=== PATIENT | female | born 1975 | race Caucasian/White ===

== ENCOUNTER 2019-02-20 16:28 | Inpatient (IN) | payer SELFPAY ==
[~2019-02-20] VITALS: Ht 157.5 cm; Wt 65.3 kg
[2019-02-20] VITALS (10 sets, daily range): BP systolic 123–155; BP diastolic 62–99
[2019-02-20] MEDS ORDERED: IV NORMAL SALINE 1000 ML BAG IV ONE (16:30)
[2019-02-20] MEDS ORDERED: LEVETIRACETAM IV 500 MG in IV DEXTROSE 5% 100 ML IV ONE (16:30)
[2019-02-20] MEDS ORDERED: LEVE500T9 PO (16:39)
--- NOTE | 2019-02-20 16:51 | NUR ---
PT IS IN ROOM #1A. DR LINDSEY EVALUATED THE PT.
[2019-02-20 17:00] LABS: BASOPHILS # (AUTO) 0.2 K/uL (0.0-8.0); BASOPHILS % (AUTO) 2.6 % (0.0-2.0); EOSINOPHILS # (AUTO) 0.1 K/uL (0.0-0.7); EOSINOPHILS % (AUTO) 1.7 % (0.0-7.0); HEMATOCRIT 39.8 % (31.2-41.9); HEMOGLOBIN 13.4 g/dL (10.9-14.3); LYMPHOCYTES # (AUTO) 2.4 K/uL (20.0-40.0); LYMPHOCYTES % (AUTO) 38.8 % (20.5-51.5); MEAN CORPUSCULAR HEMOGLOBIN 31.1 uug (24.7-32.8); MEAN CORPUSCULAR HGB CONC 34 g/dL (32.3-35.6); MEAN CORPUSCULAR VOLUME 92.5 fL (75.5-95.3); MONOCYTES # (AUTO) 0.6 K/uL (2.0-10.0); MONOCYTES % (AUTO) 10.5 % (0.0-11.0); NEUTROPHILS # (AUTO) 2.8 K/uL (1.8-8.9); NEUTROPHILS % (AUTO) 46.4 % (38.5-71.5); PLATELET COUNT (AUTO) 239 K/uL (179-408); WHITE BLOOD COUNT (AUTO) 6.1 K/uL (3.8-11.8)
[2019-02-20 17:09] LABS: CREATININE 0.8 mg/dL (0.6-1.3); POTASSIUM 3.1 mmol/L (3.5-5.1)
[2019-02-20 17:15] LABS: BILIRUBIN,DIRECT 0.1 mg/dL (0.0-0.2); BILIRUBIN,TOTAL 0.3 mg/dL (0.2-1.0); TOTAL PROTEIN, SERUM 6.7 g/dL (6.4-8.2)
[2019-02-20] MEDS ORDERED: LORAZEPAM 2 MG/1 ML VIAL ONE (17:33)
--- NOTE | 2019-02-20 17:36 | NUR ---
PT DEVELOPED SEIZURES. DR LINDSEY WAS NOTIFIED. PT WAS MEDICATED ACCORDING TO ER MD ORDERS. PT TOLERATED TO MEDICATION WITHOUT COMPLICATIONS. PT'S RELATIVES AT THE BEDSIDE.
--- NOTE | 2019-02-20 18:44 | NUR ---
DR ZAPATA TALKED ABOUT PT's ADMISSION WITH DR WINKLER. PT IS GOING TO BE ADMITED TO CCU ROOM #1. DIAGNOSIS IS - STATUS EPLEPTICUS.
[2019-02-20] MEDS ORDERED: LORAZEPAM 2 MG/1 ML VIAL IV ONE (19:00)
--- NOTE | 2019-02-20 19:00 | NUR ---
REPORT GIVEN TO MULTIPLE EFFECT EVAPORATOR OPERATOR RN.
--- NOTE | 2019-02-20 19:01 | NUR ---
RECEIVED REPORT FROM AIDEN CROWELL
--- NOTE | 2019-02-20 19:10 | NUR ---
REPORT GIVEN TO MELANIE CCU RN.
--- NOTE | 2019-02-20 19:30 | NUR ---
Admitted a 43 y.o female patient from ER via [facility] DX: Status Epilepticus/Seizures. To CCU2. AAO, follows commands well. Able to move from gurney to bed. Dr. Penny at bedside. Attached to bedside monitor: SR rate 80's-90's. Assessment done. Addendum: 02/21/19 at 0009 by MELANIE CARRILLO RN Amended: Links added. Addendum: 02/21/19 at 0010 by MELANIE CARRILLO RN Amended: Links added. Addendum: 02/21/19 at 0010 by MELANIE CARRILLO RN Amended: Links added.
--- NOTE | 2019-02-20 19:30 | NUR ---
Patient transferred to ICU/CCU via gurney with Edelmira SALAS and SHANNAN Ware. patient placed on monitor during transfer to unit. Bed rail padded and seizure precautions implemented prior to transfer. patient in stable condition. patient awake and alert and able to communicate to staff. Upon arrival to unit, Dr. Penny at bedside with the patient.
--- NOTE | 2019-02-20 19:50 | NUR ---
Assisted to BSC to void; denies dizziness or headaches. Gait steady. Voided without problems.
--- NOTE | 2019-02-20 20:00 | NUR ---
visited. Plan of care discussed. Belongings documented. Cell phone and care team assistant at bedside.
--- NOTE | 2019-02-20 20:05 | NUR ---
Had a 45 seconds grand mal seizures. Chest and entire body up and down the bed. Safety precautions enforced. Rails padded. VS stable. With O2 [address] Penny notified.
--- NOTE | 2019-02-20 20:10 | NUR ---
Patient awake able to answers questions and follow commands appropriately. Display Director normal. remains at bedside.
[2019-02-20] MEDS ORDERED: ALBUTEROL SULFATE 2.5 MG/3 ML NEBU NEB PRN (20:15)
[2019-02-20] MEDS ORDERED: ACETAMINOPHEN 650 MG SUPP.RECT RC PRN (20:15)
[2019-02-20] MEDS ORDERED: ONDANSETRON 4 MG/2 ML VIAL IV PRN (20:15)
--- NOTE | 2019-02-20 20:17 | NUR ---
Had another episode of grand mal seizures lasting for 1 minute. No EKG changes. BP remains stable.
[2019-02-20] MEDS: LORAZEPAM 2 MG/1 ML VIAL IV PRN (20:21)
--- NOTE | 2019-02-20 20:21 | NUR ---
Ativan IV given to RAC IV site.
--- NOTE | 2019-02-20 20:30 | NUR ---
Ativan effective. No post ictal phase noted. Patient remains AA and answering questions. Plan of care and visiting hours discussed with both patient and . Verbalized understanding.
[2019-02-20] MEDS: POTASSIUM CHLORIDE 20 MEQ in IV D5 1/2 NS 1000 ML 1,000 ML IV PRN (21:03)
[2019-02-20] MEDS: LEVETIRACETAM IV 1,000 MG in IV DEXTROSE 5% 100 ML IV SCH (21:05)
--- NOTE | 2019-02-20 21:25 | NUR ---
Patient had another short episode of seizures while talking on her cellphone with someone who claims to be her boyfriend. Again no post ictal phase noted. VS remains stable. Will continue to monitor closely.
[2019-02-20] MEDS: PIPERACILLIN/TAZOBACTAM/D5W 3.375 G in IV DEXTROSE 5% 50 ML IV SCH (21:41)
[2019-02-20] MEDS ORDERED: PIPERACILLIN/TAZOBACTAM/D5W 3.375 G in PREMIXED 1 EACH IV SCH (22:00)
[2019-02-21] VITALS (11 sets, daily range): BP systolic 120–147; BP diastolic 65–88
[2019-02-21] MEDS ORDERED: PIPERACILLIN SODIUM/TAZOBACTAM 3.375 G in IV DEXTROSE 5% 50 ML IV SCH ×4
--- NOTE | 2019-02-21 | NUR ---
Sleeping. VS stable. Addendum: 02/21/19 at 0514 by MELANIE CARRILLO RN Amended: Links added.
--- NOTE | 2019-02-21 04:30 | NUR ---
Am labs drawn by [facility] to [facility] with assist. Denies any dizziness. Voided strong smelling lopez urine. Specimen to the lab for urine drug screen. Back to bed without problems. Addendum: 02/21/19 at 0514 by MELANIE CARRILLO RN Amended: Links added. Addendum: 02/21/19 at 0514 by MELANIE CARRILLO RN Amended: Links added.
[2019-02-21 04:59] LABS: *BILIRUBIN,URIN NEGATIVE (NEGATIVE); *COLOR,URINE YELLOW (YELLOW); *KETONES,URINE NEGATIVE (NEGATIVE); *UROBILINOGEN,URINE 0.2 E.U./dl (NORMAL); LEUKOCYTE ESTERASE ,URINE NEGATIVE (NEGATIVE); NITRITE, URINE POSITIVE (NEGATIVE); UGLUCOSE NEGATIVE (NEGATIVE)
[2019-02-21 05:13] LABS: BASOPHILS # (AUTO) 0.1 K/uL (0.0-8.0); BASOPHILS % (AUTO) 1.7 % (0.0-2.0); EOSINOPHILS # (AUTO) 0.1 K/uL (0.0-0.7); EOSINOPHILS % (AUTO) 2.4 % (0.0-7.0); HEMATOCRIT 38.8 % (31.2-41.9); HEMOGLOBIN 13.3 g/dL (10.9-14.3); LYMPHOCYTES # (AUTO) 2.5 K/uL (20.0-40.0); LYMPHOCYTES % (AUTO) 41.4 % (20.5-51.5); MEAN CORPUSCULAR HGB CONC 34 g/dL (32.3-35.6); MEAN CORPUSCULAR VOLUME 90.8 fL (75.5-95.3); MONOCYTES # (AUTO) 0.6 K/uL (2.0-10.0); MONOCYTES % (AUTO) 9.3 % (0.0-11.0); NEUTROPHILS # (AUTO) 2.7 K/uL (1.8-8.9); NEUTROPHILS % (AUTO) 45.2 % (38.5-71.5); PLATELET COUNT (AUTO) 233 K/uL (179-408); RED BLOOD CELL COUNT(AUTO) 4.28 MIL/uL (3.63-4.92)
[2019-02-21 05:15] LABS: BILIRUBIN,TOTAL 0.3 mg/dL (0.2-1.0); CREATININE 0.7 mg/dL (0.6-1.3); MAGNESIUM 1.7 mg/dL (1.8-2.4); POTASSIUM 3.6 mmol/L (3.5-5.1)
[2019-02-21 05:16] LABS: *BLOOD, URINE TRACE (NEGATIVE); *CLARITY,URINE HAZY (CLEAR)
[2019-02-21 05:22] LABS: THYROID STIMULATING HORMONE 0.056 mIU/mL (0.358-3.740)
[2019-02-21 05:27] LABS: BACTERIA,URINE FEW /HPF (NONE SEEN); SQUAMOUS EPITHELIAL CELL,UR FEW /HPF (NONE SEEN); WBC,URINE 0-3 /HPF (0-3); YEAST,URINE MANY /HPF (NONE SEEN)
[2019-02-21 05:41] LABS: *URINE HCG, QUAL NEGATIVE (NEGATIVE)
[2019-02-21 05:46] LABS: *AMPHETAMINE, URINE NEGATIVE (NEGATIVE); *BARBITURATE, URINE NEGATIVE (NEGATIVE); *CANNABINOID, URINE NEGATIVE (NEGATIVE); *COCCAINE, URINE NEGATIVE (NEGATIVE); *OPIATE, URINE NEGATIVE (NEGATIVE); *PHENCYCLIDINE SCREEN,URINE NEGATIVE (NEGATIVE)
[2019-02-21] MEDS: PIPERACILLIN/TAZOBACTAM/D5W 3.375 G in IV DEXTROSE 5% 50 ML IV SCH ×3 (05:56→21:57)
--- NOTE | 2019-02-21 06:40 | NUR ---
No further seizures. VS stable. Addendum: 02/21/19 at 0643 by MELANIE CARRILLO RN Amended: Links added.
[2019-02-21] MEDS: LEVETIRACETAM IV 1,000 MG in IV DEXTROSE 5% 100 ML IV SCH ×2 (08:22→20:06)
--- NOTE | 2019-02-21 09:21 | NUR ---
Dr. Clarita Tejeda here to see pt. Full report given. New orders received. MD domingo for med/surg status.
[2019-02-21] MEDS: MAGNESIUM SULFATE/D5W 100 ML IV SCH ×2 (10:11→11:38)
[2019-02-21] MEDS: LORAZEPAM 2 MG/1 ML VIAL IV PRN (10:42)
--- NOTE | 2019-02-21 13:35 | NUR ---
BRIANNA Espinoza here to see pt. Full report given. New orders received.
--- NOTE | 2019-02-21 14:25 | NUR ---
Full telephone SBAR report given to MARITZA Avila.
--- NOTE | 2019-02-21 14:30 | NUR ---
Pt left the floor with RN for transfer to room #312-T. Pt stable and nad noted upon leaving the unit.
--- NOTE | 2019-02-21 14:30 | NUR ---
Patient transferred from CCU to telemetry in room 312. in stable condition. oriented to unit. seizure precs observed. comfort measures provided. call light within reach.
[2019-02-21] MEDS: POTASSIUM CHLORIDE 20 MEQ in IV D5 1/2 NS 1000 ML 1,000 ML IV PRN (15:09)
--- NOTE | 2019-02-21 16:45 | NUR ---
Per patient, she was last hospitalized 11/08/2018-11/11/2018 at [facility] in [facility]. Called [facility] Medical Records ([phone]) and confirmed that patient was admitted to their hospital last November. Faxed Medical records request to ([phone]).
--- NOTE | 2019-02-21 17:55 | NUR ---
Patient in room, having dinner, no seizure episodes noted since transferred to telemetry. patient in stable condition. all needs attended and anticipated. call light within reach. will endorse accordingly.
--- NOTE | 2019-02-21 19:59 | NUR ---
PATIENT WAS SHAKING AND OR HAVING SEIZURES, LASTED FOR 2 MINUTES, PATIENT WAS TURNED TO THE SIDE, RN CHARGED NURSE WAS AT BEDSIDE SPOKE WITH THE PATIENT AFTER THE SHAKING. PATIENT WAS AWAKE VERBALLY RESPONSIVE, WANTED PAIN MEDS VIA PO AT THIS TIME. V/S STABLE, WILL CONT TO MONITOR.
[2019-02-21] MEDS: MORPHINE SULFATE 2 MG/1 ML DISP.SYRIN IV PRN (20:17)
[2019-02-22] VITALS: BP 142/85
[2019-02-22 04:00] VITALS: BP 122/74
[2019-02-22] MEDS: PIPERACILLIN/TAZOBACTAM/D5W 3.375 G in IV DEXTROSE 5% 50 ML IV SCH ×3 (05:24→21:06)
--- NOTE | 2019-02-22 06:40 | NUR ---
PATIENT ALERT ORIENTED, NO SOB NO CHEST PAIN, TELE MONITOR SINUS RYTHM, PATIENT SLEPT MOST OF THE NIGHT, NO FURTHER EPISODE OF SEIZURE NOTED AT THIS TIME. CONT TO MONITOR.
[2019-02-22 06:47] LABS: CREATININE 0.8 mg/dL (0.6-1.3); POTASSIUM 3.6 mmol/L (3.5-5.1)
[2019-02-22] MEDS: LEVETIRACETAM IV 1,000 MG in IV DEXTROSE 5% 100 ML IV SCH (08:37)
[2019-02-22] MEDS: MORPHINE SULFATE 2 MG/1 ML DISP.SYRIN IV PRN (09:45)
--- NOTE | 2019-02-22 10:30 | NUR ---
Received pt. in bed with A/OX4 in no acute distress. R/P by bedside for support. Side rails padded for safety. On RA and tolerating well, no SOB. Pt. with x1 episode of shaking/seizure lasting 6 minutes around 0902. Turned pt. to side and ensured effective airway during episode. IV Keppra infusing at this time. No N/V after event. RAC PIV remain patent and intact. All needs attended and met at this time. Safety measures in place. Will continue to monitor. Addendum: 02/22/19 at 1118 by SYED AHUJA RN Dr. Tejeda on-site, aware of seizure event. No new order.
[2019-02-22 11:44] VITALS: BP 146/93
--- NOTE | 2019-02-22 12:30 | NUR ---
Pt. with x1 episode of seizure/shaking lasting 5 minutes (1230). PRN Ativan given x 1 and effective. NSR on tele. Administered O2 via NC for comfort. V/S: BP: 135/87 P: 76 R: 18 O2sat: 99% on 1LPM via NC. Pt. c/o headache after event.
[2019-02-22] MEDS: LORAZEPAM 2 MG/1 ML VIAL IV PRN ×2 (12:38→19:35)
[2019-02-22 16:06] VITALS: BP 133/79
--- NOTE | 2019-02-22 18:46 | NUR ---
No significant change for remainder of this shift. Remain compliant with nursing care and medications regimen. No further seizure active. Seizure precaution in placed. Follow-up call from resp for EEG, per RT tech has not come in. Safety measures and fall precaution in place. Will endorse to oncoming shift accordingly.
--- NOTE | 2019-02-22 19:15 | NUR ---
Received patient in bed with at bedside. No signs of acute distress noted. IVF running on the right hand, no s/s of infiltration or infection noted. Safety measures initiated. Seizure precautions with padded side rails. Bed is low and locked, call light within reach. Will continue to monitor.
--- NOTE | 2019-02-22 19:40 | NUR ---
Patient noted shaking up and down for about 7-8 minutes. PRN Ativan given.
--- NOTE | 2019-02-22 19:49 | NUR ---
Patient stopped having seizures, patient is awake and alert at this time. Will continue to monitor.
[2019-02-22 20:00] VITALS: BP 141/84
[2019-02-22] MEDS: LEVETIRACETAM 500 MG TABLET PO SCH (20:18)
--- NOTE | 2019-02-22 20:40 | NUR ---
Received patient lying in bed. on bedside. Patient AAOx4. No seizure episode at this time. Denies any pain or SOB. IV site on right hand intact and patent. NSR on tele at 93/min. Seizure precaution observed. Needs assessed and attended to. Safety measure initiated and call philippe within reach.
--- NOTE | 2019-02-22 20:43 | NUR ---
Report given to MARITZA Kaye for continuity of care.
[2019-02-22] MEDS ORDERED: LEVETIRACETAM 500 MG TABLET PO SCH (21:00)
[2019-02-23 00:55] VITALS: BP 140/85
[2019-02-23 04:00] VITALS: BP 119/74
[2019-02-23] MEDS: PIPERACILLIN/TAZOBACTAM/D5W 3.375 G in IV DEXTROSE 5% 50 ML IV SCH (05:05)
--- NOTE | 2019-02-23 06:11 | NUR ---
Patient slept well last night. Denies any pain or SOB. IV site on right hand intact and patent. No adverse effect noted from IV ABX. NSR with Sinus alex on tele bet. 55-65/min. Seizure precaution maintained. No further seizure episode noted. Safety measure maintained and call philippe within reach.
[2019-02-23 07:09] LABS: BASOPHILS # (AUTO) 0.1 K/uL (0.0-8.0); BASOPHILS % (AUTO) 1.9 % (0.0-2.0); EOSINOPHILS # (AUTO) 0.2 K/uL (0.0-0.7); EOSINOPHILS % (AUTO) 2.2 % (0.0-7.0); HEMATOCRIT 41.6 % (31.2-41.9); LYMPHOCYTES # (AUTO) 2.8 K/uL (20.0-40.0); LYMPHOCYTES % (AUTO) 40.5 % (20.5-51.5); MEAN CORPUSCULAR HEMOGLOBIN 30.6 uug (24.7-32.8); MEAN CORPUSCULAR HGB CONC 34 g/dL (32.3-35.6); MEAN CORPUSCULAR VOLUME 90.9 fL (75.5-95.3); MONOCYTES # (AUTO) 0.6 K/uL (2.0-10.0); MONOCYTES % (AUTO) 8.4 % (0.0-11.0); NEUTROPHILS # (AUTO) 3.2 K/uL (1.8-8.9); PLATELET COUNT (AUTO) 272 K/uL (179-408); RED BLOOD CELL COUNT(AUTO) 4.58 MIL/uL (3.63-4.92); WHITE BLOOD COUNT (AUTO) 6.9 K/uL (3.8-11.8)
[2019-02-23 07:22] LABS: CREATININE 0.8 mg/dL (0.6-1.3); MAGNESIUM 1.9 mg/dL (1.8-2.4); PHOSPHOROUS 3.8 mg/dL (2.5-4.9); POTASSIUM 3.7 mmol/L (3.5-5.1)
--- NOTE | 2019-02-23 07:30 | NUR ---
Patient in Bed, awake and verbally responsive Icelandic Speaking with at bedside. No signs of Distress noted. No SOB. No complain of pain or discomfort noted. Will continue to monitor for Episode of Seizure. No noted at this time. Will continue to monitor.
[2019-02-23] MEDS: LEVETIRACETAM 500 MG TABLET PO SCH (08:16)
[2019-02-23] MEDS: LORAZEPAM 2 MG/1 ML VIAL IV PRN ×2 (08:44→14:00)
[2019-02-23 11:50] VITALS: BP 143/89
[2019-02-23] MEDS: MORPHINE SULFATE 2 MG/1 ML DISP.SYRIN IV PRN (12:01)
[2019-02-23 16:00] VITALS: BP 130/89
--- NOTE | 2019-02-23 16:10 | NUR ---
Patient wants to go AMA, called Dr. Tejeda and made aware. Patient is awake and verbally responsive. No signs of Distress noted. No SOB. pain medications was given as Ordered for PRN Pain. patient signed AMA form, all belongings was signed and sent with patient. Removed IV site, Wrist Band and bowl attendant. Patient was accompanied by Manish and left via Private car.
== END 2019-02-23 16:45 | disposition left against medical advice (07) | DRG 100 ==
LOC: ER 16:28 → CCU 19:13 → TELE3 02-21 14:25
PROVIDERS: ADMIT Internal Medicine; ATTEND Internal Medicine
DX: G40.401 Other generalized epilepsy and epileptic syndromes, not intractable, with status epilepticus (principal); J96.01 Acute respiratory failure with hypoxia; J69.0 Pneumonitis due to inhalation of food and vomit; N39.0 Urinary tract infection, site not specified; J98.11 Atelectasis; E87.6 Hypokalemia; E83.42 Hypomagnesemia; F45.9 Somatoform disorder, unspecified; Z86.03 Personal history of neoplasm of uncertain behavior; M46.04 Spinal enthesopathy, thoracic region; F41.9 Anxiety disorder, unspecified; F32.9 Major depressive disorder, single episode, unspecified
CPT/HCPCS: 36415; 70450; 71045; 80307; 83735; 84100; 84146; 84443; 84703; 85025; 87086; 93005; A4663; G0378; J1953; J2060; J2270; J2405; J2543; J3475; J3480; J3490; J7030; J7060